=== PATIENT | female | born 1960 | race Caucasian/White ===

== ENCOUNTER 2018-09-03 00:20 | Emergency (ER) | payer BC ==
--- NOTE | 2018-09-03 00:24 | PDOC ---
History of Present Illness - General Chief Complaint: Injury Stated Complaint: LT SHOULDER PAIN Time Seen by Provider: 09/03/18 00:23 - History of Present Illness Initial Comments: 09/03/18 00:44 This 58-year-old woman with a history of thyroid cancer presents with history of fall few hours prior to presentation. Patient was attending a wedding [employer] reception[place] (not in the area); she tripped on a rug and fell forward, striking left shoulder/proximal humerus and left anterior chest against a carpeted floor. No LOC; patient has no headache/neck pain. EMS was called at airline lounge receptionist area but patient refused treatment. She traveled back here and presents for evaluation. She also impacted right knee but has been walking without significant discomfort. She denies shortness of breath/cough. Past History - Past Medical History Allergies/Adverse Reactions: Allergies Allergy/AdvReac Type Severity Reaction Status Date / Time Penicillins Allergy Severe hives Verified 09/04/16 22:01 clarithromycin [From Biaxin] AdvReac Severe STOMACH Verified 09/04/16 22:01 PAIN levofloxacin [From Levaquin] AdvReac Severe Tendon Verified 09/04/16 22:01 Rupture Home Medications: Ambulatory Orders Levothyroxine Sodium [Synthroid] 100 mcg PO DAILY tablet 02/17/15 Rosuvastatin Calcium [Crestor] 5 mg PO ASDIR tablet 02/17/15 Citalopram Hydrobromide [Celexa -] 20 mg PO DAILY 09/03/18 Famotidine [Pepcid] 20 mg PO DAILY 09/03/18 Oxycodone HCl/Acetaminophen [Percocet 5-325 mg Tablet] 1 tab PO Q6H PRN #12 tablet MDD 3 tabs 09/03/18 Anemia: No Asthma: No Cancer: Yes (THYROID 2002-TREATED WITH SURGERY, FOLLOWED WITH A RADIATION PILL) Cardiac Disorders: No CVA: No COPD: No CHF: No Dementia: No Diabetes: No GI Disorders: No Disorders: No HTN: No Hypercholesterolemia: Yes Liver Disease: No Seizures: No Thyroid Disease: Yes (THYROID CA. 2002) - Surgical History Abdominal Surgery: No Appendectomy: No Cardiac Surgery: No Cholecystectomy: No Lung Surgery: No Neurologic Surgery: No Orthopedic Surgery: No - Suicide/Smoking/Psychosocial Hx Smoking History: Never smoked Have you smoked in the past 12 months: No Hx Alcohol Use: Yes (SOCIALLY) Drug/Substance Use Hx: No Substance Use Type: Alcohol Hx Substance Use Treatment: No Review of Systems - Review of Systems Able to Perform ROS?: Yes Comments:: 12 point review of systems is negative except for what is noted in the history of present illness *Physical Exam - Physical Exam Comments: GENERAL: Adult female, alert and oriented 3, no acute distress HEAD: Normal with no signs of trauma. EYES: PERRLA, EOMI, sclera anicteric, conjunctiva clear. ENT: Ears normal, nares patent, oropharynx clear without exudates. Dry mucous membranes. NECK: Normal range of motion, supple without lymphadenopathy, JVD, or masses. LUNGS: Breath sounds equal, clear to auscultation bilaterally. No wheezes, and no crackles CHEST WALL:. Mild tenderness mid clavicular line ribs 2 through 5; no step offs or crepitus palpated Left Clavicle nontender without deformity or edema HEART:Regular rate and rhythm, normal S1 and S2 without murmur, rub or gallop. ABDOMEN:.normal bowel sounds No guarding,tenderness or rebound.No masses No distention. EXTREMITIES: Left upper extremity-moderate tenderness without deformity/ ecchymosis/edema of humeral head Remainder of the extremity is without tenderness/edema in distal extremities warm and dry with excellent capillary refill Right lower extremity-mild tenderness without deformity/ecchymosis/edema right patella; full ROM present without pain -No edema or tenderness of the right tibial joint line Distal extremity is warm and dry with excellent capillary refill Remainder of extremity exam is normal NEUROLOGICAL: Cranial nerves II through XII grossly intact. Normal speech. No focal neurological deficits. MUSCULOSKELETAL: Back non-tender to palpation, no CVA tenderness SKIN: Warm, Dry, normal turgor, no rashes or lesions noted. Medical Decision Making - Medical Decision Making Left shoulder x-ray and left rib series performed. Preliminary reading of left shoulder x-ray: Nondisplaced fracture of the greater tuberosity of the humerus. No other fracture/dislocation or other abnormality seen. Results discussed with the patient. Patient will be discharged with follow-up with [facility]. She will call the office on Tuesday, September 04 to arrange follow-up within the next couple days. Meanwhile, patient will have a sling placed on the left shoulder which she will keep in place at all times. Ice should be applied to the shoulder area for the next 48 hours. She should keep her head elevated tonight. She will use ibuprofen/naproxen/acetaminophen as needed for [id number]-[id number] pain. Percocet 5/325 up to 3 tablets a day will be used for more severe pain. One tablet of Percocet 5/325 was dispensed to the patient to be used if she has pain in the next several hours (patient stated that she did not have significant pain currently). Prescription for #12 tablets of Percocet 5/325 sent to patient's pharmacy. *DC/Admit/Observation/Transfer Diagnosis at time of Disposition: Fracture, humerus, greater tuberosity Qualifiers: Encounter type: initial encounter Fracture type: closed Fracture alignment: nondisplaced Laterality: left Qualified Code(s): S42.255A - Nondisplaced fracture of greater tuberosity of left humerus, initial encounter for closed fracture - Discharge Dispostion Disposition: HOME Condition at time of disposition: Stable - Prescriptions Prescriptions: Oxycodone HCl/Acetaminophen [Percocet 5-325 mg Tablet] 1 tab PO Q6H PRN #12 tablet MDD 3 tabs PRN Reason: Severe Pain - Referrals Referrals: Zay Rawls MD [Primary Care Provider] - Gibran Brush MD [Staff Physician] - 2 Days - Patient Instructions Printed Discharge Instructions: DI for Shoulder Fracture Additional Instructions: Ice to shoulder for the next 2 days Keep [address]ing in place at all times Elevate head tonight Ibuprofen/acetaminophen/naproxen for [id number] pain Percocet 5/325 up to 3 times a day as needed for severe pain Follow-up with orthopedics ([facility]); call office on TueSeptember 04 to arrange follow-up within 48 hours - Post Discharge Activity
[2018-09-03 00:34] VITALS: BP 125/89; PULSE 79; TEMP 97.8; BMI 29.2
== END 2018-09-03 01:41 | disposition home or self-care (01) ==
LOC: FER 00:20
DX: S42.255A Nondisplaced fracture of greater tuberosity of left humerus, initial encounter for closed fracture (principal); W01.0XXA Fall on same level from slipping, tripping and stumbling without subsequent striking against object, initial encounter; Y93.89 Activity, other specified; Y92.89 Other specified places as the place of occurrence of the external cause; E78.00 Pure hypercholesterolemia, unspecified; Z85.850 Personal history of malignant neoplasm of thyroid
CPT/HCPCS: 71101-TC-FY; 73030-TC-LT-FY; 99282-25